=== PATIENT | male | born 1980 | race Caucasian/White ===

== ENCOUNTER 2016-09-06 18:09 | Emergency (ER) | payer OTHER ==
[2016-09-06 19:09] LABS: ABSOLUTE NEUTROPHIL COUNT 4.2 K/mm3 (1.8-7.7); BASO # 0.1 K/mm3 (0.0-0.2); BASO % 0.6 % (0.2-1.0); EOS # 0.1 (0.0-0.5); EOS % 1.4 % (0.9-2.9); HEMOGLOBIN 15.2 gm/l (14.0-18.0); IMM NEUT # 0.1 K/mm3 (0-0.2); IMM NEUT% 0.7 % (0-1); LYMPH % 36.2 % (15-45); MEAN CELL VOLUME 91.1 fl (80.0-94.0); MEAN CORPUSCULAR HEMOGLOBIN 30.8 pg (27.0-31.0); MEAN CORPUSCULAR HGB CONC 33.8 g/dl (33.0-37.0); MEAN PLATELET VOLUME 10.1 fl (7.4-10.4); MONO # 0.8 (0.0-0.8); MONO % 10.1 % (4-12); PLATELET COUNT 255 K/mm3 (130-400); RED CELL DISTRIBUTION WIDTH 12.9 % (11.5-14.5)
[2016-09-06 19:18] LABS: ALB/GLOB RATIO 1.8 (>1.0); ALBUMIN 4.2 gm/dL (3.5-5.7); CALCIUM 9.1 mg/dL (8.6-10.3)
[2016-09-06] MEDS ORDERED: DOCUSATE SODIUM 10 MG/ML SOLN.DROP ONE (19:19)
[2016-09-06 19:24] LABS: TROPONIN I < 0.01 ng/ml (0.0-0.06)
[2016-09-06 19:27] LABS: CKMB ISOENZYME 4.5 ng/ml (0.6-6.3)
== END 2016-09-06 21:15 | disposition home or self-care (01) ==
LOC: ED 18:09
DX: R00.2 Palpitations (principal); R42 Dizziness and giddiness